=== PATIENT | male | born 1990 | race Caucasian/White ===

== ENCOUNTER 2022-06-04 09:56 | Outpatient (CLI) | payer BC, SELFPAY ==
[2022-06-04 13:01] LABS: Chloride* 103 mmol/L (96-114); Potassium* 4.2 mmol/L (3.6-5.1); Sodium* 140 mmol/L (135-149)
[2022-06-04 13:04] LABS: Blood Urea Nitrogen* 17 mg/dL (5-24); Carbon Dioxide* 31 mmol/L (20-32); Cholesterol* 128 mg/dL (90-199); Creatinine* 0.7 mg/dL (0.5-1.5); Estimated Glomerular Filt Rate 125 ml/min; Glucose* 85 mg/dL (60-115)
[2022-06-04 13:05] LABS: Calcium* 8.8 mg/dL (8.4-10.6); HDL Cholesterol* 48 mg/dL (>=40); LDL Cholesterol Calculated 68 mg/dL (<100); Triglycerides* 61 mg/dL (40-149)
== END 2022-06-04 09:57 | disposition home or self-care (01) ==
PROVIDERS: PCP Family Medicine; Visit Provider Family Medicine
DX: Z00.00 Encounter for general adult medical examination without abnormal findings (principal); Z13.6 Encounter for screening for cardiovascular disorders
CPT/HCPCS: 80048; 80061

== ENCOUNTER 2023-06-08 09:52 | Outpatient (CLI) | payer BC, SELFPAY | END 2023-06-08 09:53 | disposition home or self-care (01) | PROVIDERS: PCP Family Medicine; Visit Provider Family Medicine | DX: Z00.00 Encounter for general adult medical examination without abnormal findings (principal); Z13.6 Encounter for screening for cardiovascular disorders | CPT/HCPCS: 80048; 80061 ==